=== PATIENT | female | born 1995 | race Caucasian/White ===

== ENCOUNTER 2019-02-22 08:14 | Outpatient (REF) | payer OTHER, SELFPAY ==
[2019-02-23 10:38] LABS: Specimen Description Feces
[2019-02-23 12:55] LABS: Result Positive
== END 2019-02-22 08:34 ==
LOC: NCHCN 08:14
PROVIDERS: PCP Nurse Practitioner; Visit Provider Nurse Practitioner Family
DX: R19.7 Diarrhea, unspecified (principal)
CPT/HCPCS: 87324; 87798

== ENCOUNTER 2020-10-31 19:22 | Outpatient (REF) | payer OTHER, SELFPAY ==
[2020-11-03 17:51] LABS: COVID-19 RT-PCR UVMMC Result Negative (Negative)
== END 2020-10-31 19:42 ==
LOC: NCHCN 19:22
PROVIDERS: PCP Nurse Practitioner; Visit Provider Nurse Practitioner Family
DX: Z20.828 Contact with and (suspected) exposure to other viral communicable diseases (principal)
CPT/HCPCS: U0003

== ENCOUNTER 2021-05-28 12:31 | Outpatient (REF) | payer OTHER, SELFPAY ==
[2021-05-28 13:56] LABS: Anion Gap 9.7 mmol/L (3-11); BUN 11 mg/dL (7-18); CO2 26.3 mmol/L (21.0-32.0); CREATININE 0.8 mg/dL (0.55-1.02); Calcium 9.1 mg/dL (8.5-10.1); Chloride 104 mmol/L (98-107); Glucose 74 mg/dL (74-106); Potassium 4.2 mmol/L (3.5-5.1); Sodium 140 mmol/L (136-145)
== END 2021-05-28 12:32 | disposition home or self-care (01) ==
LOC: NCHCN 12:31
PROVIDERS: PCP Nurse Practitioner; Visit Provider Nurse Practitioner Family
DX: F41.9 Anxiety disorder, unspecified (principal); L70.9 Acne, unspecified; E66.3 Overweight
CPT/HCPCS: 80048

== ENCOUNTER 2021-06-30 15:33 | Outpatient (REF) | payer OTHER, SELFPAY ==
[2021-07-02 11:33] LABS: COVID-19 RT-PCR UVMMC Result Positive (Negative)
== END 2021-06-30 15:34 | disposition home or self-care (01) ==
LOC: NCHCN 15:33
PROVIDERS: PCP Nurse Practitioner; Visit Provider Nurse Practitioner Family
DX: Z20.822 Contact with and (suspected) exposure to COVID-19 (principal); J06.9 Acute upper respiratory infection, unspecified
CPT/HCPCS: U0003

== ENCOUNTER 2022-11-11 13:22 | Outpatient (REF) | payer BC, SELFPAY ==
[2022-11-13 13:57] LABS: COVID-19 RT-PCR UVMMC Result Negative (Negative)
== END 2022-11-11 13:23 | disposition home or self-care (01) ==
LOC: LBN 13:22
PROVIDERS: PCP Nurse Practitioner; Visit Provider Physician Assistant Medical
DX: Z20.822 Contact with and (suspected) exposure to COVID-19 (principal); J02.9 Acute pharyngitis, unspecified
CPT/HCPCS: 87077; U0003; 87070

== ENCOUNTER 2022-11-22 21:05 | Outpatient (REF) | payer BC, SELFPAY | END 2022-11-22 21:06 | disposition home or self-care (01) | LOC: LBN 21:05 | PROVIDERS: PCP Nurse Practitioner; Visit Provider Nurse Practitioner Family | DX: J02.9 Acute pharyngitis, unspecified (principal) | CPT/HCPCS: 87070 ==

== ENCOUNTER 2022-11-23 15:50 | Outpatient (REF) | payer BC, SELFPAY ==
--- NOTE | 2022-11-23 15:30 | PAPFT_PTH ---
PATIENT: Conchita Sosa LOC: [facility]#:[id number] AGE/SX: 27/F ROOM: RE11/23/[address]: Angelica Edward : 1995 BED: DIS: 11/23/2022 SPEC #: [id number] RECD: 11/24/22 13:17 STATUS: KERA RERoberto #: [id number] JOE: 11/23/22 15:[address]: Angelica Edward DEPT: [facility] Cytology RECD BY: Vinita Mack ENTERED: 11/24/22 13:18 SP TYPE: PAPFT OTHR DR: Em Aguilar Tissues: 1 - CX/ENDOCX FOR PAP SMEARS Procedures: PAP THIN PREP/[facility] Screening HPV DNA PROBE Comments: [id number]
[2022-11-23 21:14] LABS: Anion Gap 6.7 mmol/L (3-11); BUN 13 mg/dL (7-18); CO2 28.3 mmol/L (21.0-32.0); CREATININE 0.8 mg/dL (0.55-1.02); Calcium 8.8 mg/dL (8.5-10.1); Chloride 105 mmol/L (98-107); Estimated GFR 102.22 (mL/min/1.73m2); Glucose 80 mg/dL (74-106); Potassium 3.9 mmol/L (3.5-5.1); Sodium 140 mmol/L (136-145)
== END 2022-11-23 15:51 | disposition home or self-care (01) ==
LOC: NCHCN 15:50
PROVIDERS: PCP Nurse Practitioner; Visit Provider Nurse Practitioner Family
DX: E66.3 Overweight (principal); F41.8 Other specified anxiety disorders; R51.9 Headache, unspecified; Z12.4 Encounter for screening for malignant neoplasm of cervix; Z00.00 Encounter for general adult medical examination without abnormal findings; Z11.51 Encounter for screening for human papillomavirus (HPV); Z01.419 Encounter for gynecological examination (general) (routine) without abnormal findings
CPT/HCPCS: 80048; 88142; 87624

== ENCOUNTER 2023-08-01 21:12 | Outpatient (REF) | payer BC, SELFPAY | END 2023-08-01 21:13 | disposition home or self-care (01) | LOC: LBN 21:12 | PROVIDERS: PCP Nurse Practitioner; Visit Provider Nurse Practitioner Family | DX: J02.9 Acute pharyngitis, unspecified (principal) | CPT/HCPCS: 87070 ==

== ENCOUNTER 2023-10-10 17:55 | Outpatient (REF) | payer BC, SELFPAY ==
[2023-10-11 15:02] LABS: GC Result Negative (Negative)
[2023-10-11 15:38] LABS: Specimen Description Endocervical
[2023-10-11 15:39] LABS: Chlamydia Result Positive (Negative)
== END 2023-10-10 17:56 | disposition home or self-care (01) ==
LOC: NCHCN 17:55
PROVIDERS: PCP Nurse Practitioner Family; Visit Provider Nurse Practitioner Family
DX: N76.0 Acute vaginitis (principal)
CPT/HCPCS: 87491; 87591; 87480; 87510; 87660

== ENCOUNTER 2023-12-06 16:08 | Outpatient (REF) | payer BC, SELFPAY ==
[2023-12-08 13:12] LABS: Chlamydia Result Negative (Negative); GC Result Negative (Negative)
== END 2023-12-06 16:09 | disposition home or self-care (01) ==
LOC: NCHCN 16:08
PROVIDERS: PCP Nurse Practitioner Family; Visit Provider Nurse Practitioner Family
DX: R30.0 Dysuria (principal)
CPT/HCPCS: 87077; 87491; 87591; 87086; 87186

== ENCOUNTER 2024-06-26 21:50 | Outpatient (REF) | payer BC, SELFPAY ==
[2024-06-26 21:40] LABS: Anion Gap 10.3 mmol/L (3-11); BUN 9 mg/dL (7-18); CO2 24.7 mmol/L (21.0-32.0); CREATININE 0.8 mg/dL (0.55-1.02); Calcium 9.5 mg/dL (8.5-10.1); Chloride 103 mmol/L (98-107); Estimated GFR 100.96 (mL/min/1.73m2); Glucose 73 mg/dL (74-106); Potassium 4.3 mmol/L (3.5-5.1); Sodium 138 mmol/L (136-145); TSH (W/Ref FT4) 0.95 uIU/mL (0.36-3.74)
== END 2024-06-26 21:51 | disposition home or self-care (01) ==
LOC: NCHCN 21:50
PROVIDERS: PCP Nurse Practitioner Family; Visit Provider Nurse Practitioner Family
DX: Z00.00 Encounter for general adult medical examination without abnormal findings (principal); F41.8 Other specified anxiety disorders; E66.9 Obesity, unspecified
CPT/HCPCS: 80048; 84443

== ENCOUNTER 2024-07-26 15:50 | Outpatient (REF) | payer BC, SELFPAY | END 2024-07-26 15:51 | disposition home or self-care (01) | LOC: NCHCN 15:50 | PROVIDERS: PCP Nurse Practitioner Family; Visit Provider Nurse Practitioner Family | DX: N89.8 Other specified noninflammatory disorders of vagina (principal) | CPT/HCPCS: 87480; 87510; 87660 ==

== ENCOUNTER 2024-09-25 17:11 | Outpatient (REF) | payer BC, SELFPAY | END 2024-09-25 17:12 | disposition home or self-care (01) | LOC: LBN 17:11 | PROVIDERS: PCP Nurse Practitioner Family; Visit Provider Physician Assistant | DX: J02.9 Acute pharyngitis, unspecified (principal) | CPT/HCPCS: 87070 ==

== ENCOUNTER 2024-10-12 14:40 | Outpatient (REF) | payer BC, SELFPAY ==
[2024-10-12 15:16] LABS: Bilirubin Negative (Negative); Blood Negative (Negative); Clarity Clear (Clear); Glucose Negative (Negative); Ketones Negative (Negative); Leukocyte Esterase Negative (Negative); Nitrite Negative (Negative); Specific Gravity <= 1.005 (1.005-1.025); Urobilinogen 0.2 mg/dL (Up to 0.2)
== END 2024-10-12 14:41 | disposition home or self-care (01) ==
LOC: NCHCN 14:40
PROVIDERS: PCP Nurse Practitioner Family; Visit Provider Nurse Practitioner Family
DX: R30.0 Dysuria (principal)
CPT/HCPCS: 81003

== ENCOUNTER 2025-04-15 16:02 | Outpatient (REF) | payer BC, SELFPAY ==
[2025-04-15 21:59] LABS: Bilirubin Negative (Negative); Blood Negative (Negative); Clarity Clear (Clear); Glucose Negative (Negative); Ketones Negative (Negative); Leukocyte Esterase Negative (Negative); Nitrite Negative (Negative); Specific Gravity <= 1.005 (1.005-1.025); Urobilinogen 0.2 mg/dL (Up to 0.2)
== END 2025-04-15 16:03 | disposition home or self-care (01) ==
LOC: NCHCN 16:02
PROVIDERS: PCP Nurse Practitioner Family; Visit Provider Nurse Practitioner Family
DX: R39.9 Unspecified symptoms and signs involving the genitourinary system (principal)
CPT/HCPCS: 81003; 87086

== ENCOUNTER 2025-07-01 16:14 | Outpatient (REF) | payer BC, SELFPAY ==
[2025-07-01 21:14] LABS: Anion Gap 8.6 mmol/L (3-11); BUN 14 mg/dL (7-18); CO2 27.4 mmol/L (21.0-32.0); Calcium 9.1 mg/dL (8.5-10.1); Chloride 101 mmol/L (98-107); Estimated GFR 100.33 (mL/min/1.73m2); Glucose 86 mg/dL (74-106); Potassium 4.5 mmol/L (3.5-5.1); Sodium 137 mmol/L (136-145)
== END 2025-07-01 16:15 | disposition home or self-care (01) ==
LOC: NCHCN 16:14
PROVIDERS: PCP Nurse Practitioner Family; Visit Provider Nurse Practitioner Family
DX: L70.9 Acne, unspecified (principal)
CPT/HCPCS: 80048